=== PATIENT | male | born 1975 | race Caucasian/White ===

== ENCOUNTER → 2023-04-17 | Outpatient (CLI) | payer OTHER ==
[~2023-04-17] MED LIST: MOTRIN 600600 MG/TAB PO; MULTI VITAMINS1 TAB PO; PRILOSEC 20MG20 MG PO
== END ==
LOC: COL.RAD 07:01
DX: M71.21 Synovial cyst of popliteal space [Baker], right knee (principal); S83.241A Other tear of medial meniscus, current injury, right knee, initial encounter; M25.361 Other instability, right knee; Z98.890 Other specified postprocedural states